=== PATIENT | female | born 1990 | race Caucasian/White ===

== ENCOUNTER 2017-12-02 15:31 | Inpatient (IN) | payer OTHER ==
[~2017-12-02] VITALS: Ht 160 cm; Wt 70.9 kg
[2017-12-02 15:51] VITALS: BP 117/67
[2017-12-02] MEDS ORDERED: METHADONE10 MG PO (16:13)
[2017-12-02] MEDS ORDERED: ZOFRAN4 MG PO (16:15)
[2017-12-02] MEDS ORDERED: VISTARIL50 MG PO (16:20)
[2017-12-02 16:49] LABS: COCAINE NEGATIVE (150 ng/mL); METHAMPHETAMINE NEGATIVE (500 ng/mL); OPIATES (MORPHINE) NEGATIVE (100 ng/mL); PHENCYCLIDINE NEGATIVE (25 ng/mL); THC CANNABINOIDS NEGATIVE (50 ng/mL)
[2017-12-02 16:50] LABS: AMPHETAMINE NEGATIVE (500 ng/mL); BARBITURATES NEGATIVE (200 ng/mL); BENZODIAZEPINES NEGATIVE (150 ng/mL); BUPRENORPHINE NEGATIVE (10 ng/mL); METHADONE PRESUMPTIVE POSITIVE (200 ng/mL); OXYCODONE NEGATIVE (100 ng/mL); PROPOXYPHENE NEGATIVE (300 ng/mL); TRICYCLIC ANTIDEPRESSANTS NEGATIVE (300 ng/mL)
[2017-12-02 17:03] LABS: BASOPHIL (%) 0.4 % (0-1); EOSINOPHIL COUNT 0.1 K/uL (0-0.3); HEMATOCRIT 32.9 % (36.0-46.0); IMMATURE GRANULOCYTE (%) 0.3 % (0.0-0.7); LYMPHOCYTE (%) 34.7 % (15-42); LYMPHOCYTE COUNT 2.6 K/uL (1.0-2.8); MCH 28.3 PG (29.0-34.0); MCHC 33.4 G/DL (30.0-36.0); MCV 84.6 FL (83-99); MONOCYTE (%) 8.4 % (3-12); MONOCYTE COUNT 0.6 K/uL (0-0.8); NEUTROPHIL (%) 55.2 % (45-76); NEUTROPHIL COUNT 4.1 K/uL (1.8-6.4); PLATELET COUNT 234 K/uL (156-360); RBC DIS.WIDTH-CV 12.9 % (11.8-14.6); RBC DIS.WIDTH-SD 39.2 % (39-53); RED BLOOD COUNT 3.89 M/uL (3.80-5.20); WHITE BLOOD COUNT 7.3 K/uL (4.1-10.2)
[2017-12-02 18:30] VITALS: BP 128/68
[2017-12-02 19:19] VITALS: BP 119/65
[2017-12-03 02:11] VITALS: BP 123/71
[2017-12-03 03:56] VITALS: BP 127/76
[2017-12-03 07:21] VITALS: BP 114/63
[2017-12-03 07:23] LABS: BASOPHIL (%) 0.3 % (0-1); EOSINOPHIL (%) 0.7 % (0-5); HEMOGLOBIN 9.2 G/DL (11.9-15.5); IMMATURE GRANULOCYTE (%) 0.3 % (0.0-0.7); LYMPHOCYTE (%) 28.9 % (15-42); LYMPHOCYTE COUNT 1.8 K/uL (1.0-2.8); MCH 28.1 PG (29.0-34.0); MCHC 32.9 G/DL (30.0-36.0); MCV 85.6 FL (83-99); MONOCYTE (%) 9.6 % (3-12); MONOCYTE COUNT 0.6 K/uL (0-0.8); NEUTROPHIL (%) 60.2 % (45-76); NEUTROPHIL COUNT 3.7 K/uL (1.8-6.4); PLATELET COUNT 194 K/uL (156-360); RBC DIS.WIDTH-SD 40.1 % (39-53); RED BLOOD COUNT 3.27 M/uL (3.80-5.20); WHITE BLOOD COUNT 6.2 K/uL (4.1-10.2)
[2017-12-03 11:50] VITALS: BP 127/78
[2017-12-03 15:12] VITALS: BP 119/73
[2017-12-05 07:49] VITALS: BP 126/74
[2017-12-05 15:14] VITALS: BP 121/81
[2017-12-05 23:00] VITALS: BP 136/77
[2017-12-06 07:48] VITALS: BP 132/79
[2017-12-06] MEDS ORDERED: ENDOCET 5-3251 EACH PO (10:41)
[2017-12-06] MEDS ORDERED: IBUPROFEN800 MG PO (10:41)
[2017-12-06] MEDS ORDERED: CHROMAGEN,1 CAPSULE PO (10:41)
== END 2017-12-06 13:52 | DRG 765 ==
LOC: LDRP-OP 15:31 → 2WEST 15:32
PROVIDERS: Advanced Practice Midwife; Obstetrics & Gynecology Obstetrics
PROC: 10D00Z1 Extraction of Products of Conception, Low, Open Approach (ICD-10-PCS; principal; 2017-12-02)
PROC: 3E033VJ Introduction of Other Hormone into Peripheral Vein, Percutaneous Approach (ICD-10-PCS; principal; 2017-12-02)
DX: O76 Abnormality in fetal heart rate and rhythm complicating labor and delivery (principal); O99.324 Drug use complicating childbirth; F11.90 Opioid use, unspecified, uncomplicated; Z22.322 Carrier or suspected carrier of Methicillin resistant Staphylococcus aureus; O99.834 Other infection carrier state complicating childbirth; D50.9 Iron deficiency anemia, unspecified; F14.90 Cocaine use, unspecified, uncomplicated; O99.02 Anemia complicating childbirth; D62 Acute posthemorrhagic anemia; O69.1XX0 Labor and delivery complicated by cord around neck, with compression, not applicable or unspecified; Z37.0 Single live birth; Z3A.38 38 weeks gestation of pregnancy; B18.2 Chronic viral hepatitis C; O98.42 Viral hepatitis complicating childbirth; F41.9 Anxiety disorder, unspecified; O99.344 Other mental disorders complicating childbirth; F17.200 Nicotine dependence, unspecified, uncomplicated; O99.334 Smoking (tobacco) complicating childbirth
CPT/HCPCS: 85025; 86850; 86900; 86901; 87081; 87641; J0330; J0690; J1170; J1885; J2274; J2405; J2590; J3010; J7120; Q0177; S0020